=== PATIENT | male | born 1955 | race Caucasian/White ===

== ENCOUNTER → 2019-04-03 09:01 | Outpatient (CLI) | payer MEDICARE ==
[2014-06-10 08:28] VITALS: BMI 25.8
[~2019-04-03 09:01] MED LIST: BAYER CHEWABLE81 MG PO; COREG 3.1253.125 MG PO; IMDUR30 MG PO; LISINOPRIL5 MG PO; MOTRIN PM CAPL1 EACH PO; NEURONTIN 300300 MG PO; PLAVIX75 MG PO
== END | disposition home or self-care (01) ==
LOC: D.HCCARDIO 09:00
PROVIDERS: ATTEND Internal Medicine Cardiovascular Disease
DX: I25.10 Atherosclerotic heart disease of native coronary artery without angina pectoris (principal)

== ENCOUNTER 2019-05-10 07:01 | Outpatient (CLI) | payer MEDICARE ==
[~2019-05-10] VITALS: Ht 177.8 cm; Wt 75.9 kg
--- NOTE | ~2019-05-10 | HEMODYNAMI ---
PATIENT:IVAN MALIK MEDICAL RECORD: [id number] : 57 LOCATION:[facility] ADMISSION DATE: 05/10/19 Generatedon:05/10/20199:52 Patient name: IVAN MALIK Patient #: [id number] SSN: [id number] : 1955 Date of study: 05/10/2019 Page: Of Hemodynamic Procedure Report Patient Data Patient Demographics Procedure consent was obtained First Name: IVAN Gender: Male Last Name: KING : 1955 Patient #: [id number] Age: 63 year(s) Race: SSN: [id number] Additional ID: [id number] Contact details [address]: [address] [place] [address] [facility] [place] [facility] Zip code: [address] Past Medical History Performed procedures and imaging results Date Procedure Procedure Results Comments Stress testing with Positive SPECT MPI History of disease Date Diagnosis Comments CAD Allergies Allergen Reaction Date Comments Reported Other allergy 05/10/2019 NAPROXEN Admission Admission Data Admission Date: 05/10/2019 Admission Time: 7:01 Arrival Date: 05/10/2019 Arrival Time: 0:00 Height (in.): 70 BSA: 1.94 (m2) Height (cm.): 177.8 BMI: 24.04 (kg/m2) Weight (lbs.): 167.55 Weight (kg.): 76 Lab Results Lab Result Date: 05/10/2019 Lab Result Time: 0:00 Biochemistry Name Units Result Min Max BUN mg/dl 10 --(-*--)-- 7 18 Creatinine mg/dl 0.8 --(-*--)-- 0.6 1.3 eGFR ml/min 90 --(*---)-- 90 120 NONAFRICAN CBC Name Units Result Min Max Hematocrit % 45 --(*---)-- 42 54 Hemoglobin g/dl 15.4 --(-*--)-- 13.5 17.5 Procedure Procedure Types Cath Procedure Diagnostic Procedure LHC LHC w/Coronaries Sedation Charges Moderate Sedation up to 45 minutes PCI Procedure Coronary Stent Coronary Stent Initial Procedure Description Procedure Date Procedure Date: 05/10/2019 Procedure Start Time: 8:59 Procedure End Time: 9:50 Procedure Staff Name Function Kimo Prado MD Performing Physician Nicole Stafford RT Monitor Millie Silvestre RT Monitor Sri Singh RT Scrub Cinda Almaraz RN Nurse Procedure Data Cath Procedure Fluoroscopy Diagnostic fluoroscopy Total fluoroscopy Time: 9.3 time: 9.3 min min Diagnostic fluoroscopy Total fluoroscopy dose: dose: 1006 mGy 1006 mGy Contrast Material Contrast Material Type Amount (ml) Isovue 300 131 Entry Location Entry Primary Successful Side Size Upsize Upsize Entry Closure Sibley ccessful Closure Location (Fr) 1 (Fr) 2 (Fr) Remarks Device Remarks Radial Right 6 Fr Mechanical artery Short Compression Estimated blood loss: 10 ml Diagnostic catheters Device Type Used For End Catheter Placement DIAGNOSTIC [place] 110cm 5 Procedure Fr catheter ([id number]) DIAGNOSTIC Praful 110cm Procedure 5Fr catheter ([id number]) DIAGNOSTIC Pigtail 5Fr LV Angiography catheter ([id number]) Procedure Complications No complications Procedure Medications Medication Administration Route Dosage Oxygen etCO2 Nasal cannula 2 l/min Lidocaine 2% added to field 20 Heparin Flush Bag added to field 2 bags (1000units/500ml NS) 0.9% NaCl I.V. 100 ml/hr Zofran I.V. 4 mg Versed I.V. 2 mg Fentanyl I.V. 50 mcg Versed I.V. 2 mg Fentanyl I.V. 50 mcg Versed I.V. 2 mg Versed I.V. 1 mg Heparin Bolus I.V. 7500 units Fentanyl I.V. 50 mcg Versed I.V. 1 mg Nitroglycerin IC/IA I.C. 50 mcg Radial Cocktail I.A. 1 syringe (Verapamil 2mg/Nitro 400mcg/Heparin 1500units) Hemodynamics Rest BSA: 1.94 (m2) HGB: 15.4 (g/dl) O2 Consumption: Estimated: 224.37 (ml/min) O2 Co nsumption indexed: Estimated:115.65 (ml/min/m) Heart Rate: 66 (bpm) Pressure Samples Time Site Value (mmHg) Purpose Heart Use Rate(bpm) 9:18 LV 101/-6,4 Snapshot 80 9:18 AO 113/52(73) Pullback 90 9:18 LV 108/-9,5 Pullback 90 Gradients Valve Time Site 1 Site 2 Mean SEP/DFP Peak To Heart Use (mmHg) (sec/min) Peak Rate (mmHg) (bpm) Aortic 9:18 LV AO 0 7 0 90 108/-9,5 113/52(73) Calculations Valve P-P Mean Valve Index Valve Source Name Gradient Area Flow (cm2) Aortic 0 0 0 0 Snapshots Pre Cath Intra NCS Post Cath Vital Signs Time Heart Resp SPO2 etCO2 NIBP (mmHg) Rhythm Pain Sedation Rate (ipm) (%) (mmHg) Status Level (bpm) 8:45:45 75 19 94 0 135/74(105) NSR 0 (11) 10(A) , No pain 8:49:55 80 10 96 35.4 108/59(78) NSR 0 (11) 10(A) , No pain 8:54:03 79 15 96 35.3 91/54(65) NSR 0 (11) 10(A) , No pain 8:58:09 86 17 97 27.9 92/52(68) NSR 0 (11) 10(A) , No pain 9:02:15 82 15 97 27.1 85/51(62) NSR 0 (11) 10(A) , No pain 9:06:20 86 18 95 17.3 76/43(58) NSR 0 (11) 9(A) , No pain 9:10:22 89 19 100 0 84/48(57) NSR 0 (11) 9(A) , No pain 9:14:28 80 19 100 29.3 95/44(61) NSR 0 (11) 9(A) , No pain 9:18:44 87 23 100 27.8 86/31(38) NSR 0 (11) 10(A) , No pain 9:22:48 80 18 96 35.4 101/51(68) NSR 0 (11) 9(A) , No pain 9:26:55 85 23 94 24.8 92/54(65) NSR 0 (11) 9(A) , No pain 9:31:03 85 14 96 36.1 99/49(65) NSR 0 (11) 9(A) , No pain 9:35:13 88 20 92 27.8 88/50(66) NSR 0 (11) 9(A) , No pain 9:39:17 93 19 95 28.6 92/54(69) NSR 0 (11) 10(A) , No pain 9:43:23 89 18 95 33.9 96/53(72) NSR 0 (11) 10(A) , No pain 9:47:31 86 22 96 32.4 105/52(72) NSR 0 (11) 10(A) , No pain Medications Time Medication Route Dose Verified Delivered Reason Note s Effectiveness by by 8:48:26 Oxygen etCO2 2 l/min Kimo Buffie used for Nasal Johan Almaraz RN procedure cannula 8:48:42 Lidocaine 2% added 20ml Kimo Kimo for local to vial Johan Prado MD anesthetic field 8:48:48 Heparin Flush added 2 bags Kimo Kimo used for Bag to Johan Prado MD procedure (1000units/500ml field NS) 8:48:56 0.9% NaCl I.V. 100 Kimo Buffie Per physician ml/hr Johan Almaraz RN 8:49:14 Zofran I.V. 4 mg Kimo Buffie Per physician Johan Almaraz RN 8:49:25 Radial Cocktail I.A. 1 Kimo Kimo for (Verapamil syringe Johan Prado MD vasodilation 2mg/Nitro 400mcg/Heparin 1500units) 8:50:28 Versed I.V. 2 mg Kimo Buffie for sedation Johan Almaraz RN 8:50:34 Fentanyl I.V. 50 mcg Kimo Buffie for sedation Johan Almaraz RN 8:56:38 Versed I.V. 2 mg Kimo Buffie for sedation Johan Almaraz RN 8:56:40 Fentanyl I.V. 50 mcg Kimo Buffie for sedation Johan Almaraz RN 9:05:55 Versed I.V. 2 mg Kimo Buffie for sedation Johan Almaraz RN 9:20:34 Versed I.V. 1 mg Kimo Buffie for sedation Johan Almaraz RN 9:22:31 Heparin Bolus I.V. 7500 Kimo Buffie for veri fied units Johan Almaraz RN anticoagulation with dr prado 9:26:34 Fentanyl I.V. 50 mcg Kimo Buffie for sedation Johan Almaraz RN 9:28:43 Versed I.V. 1 mg Kimo Loo for sedation Johan Almaraz RN 9:34:31 Nitroglycerin I.C. 50 mcg Kimo Malin for IC/IA Johan Prado MD vasodilation Procedure Log Time Note 8:06:34 Informed consent obtained and on chart 8:07:23 Procedure Status Elective Heart Cath (OP). 8:07:24 Time tracking: Regular hours (M-F 7:00 - 5:00) 8:07:30 Plan of Care:Hemodynamics will remain stable., Cardiac rhythm will remain stable., Comfort level will be maintained., Respiratory function will remain adequate., Patient/ family verbilizes understanding of procedure., Procedure tolerated without complication., Recovers from procedure without complications.. 8:08:07 H&P Date Dictated: 05/10/2019 Within 30 days and on chart., H&P Addendum completed by physician on day of procedure. (MUST COMPLETE FOR ALL OUTPATIENTS). 8:08:20 Patient allergic to Other allergyNAPROXEN 8:09:04 Patient Weight : 167.55 lbs 8:09:13 Patient Height : 70 inches 8:09:17 Arrival Date: 05/10/2019 12:00:00 AM 8:10:10 Cinda Almaraz RN sent for patient. Start room use. 8:19:45 Lab Result : Creatinine 0.8 mg/dl 8:19:45 Lab Result : BUN 10 mg/dl 8:19:45 Lab Result : eGFR NONAFRICAN 90 ml/min 8:19:45 Lab Result : Hemoglobin 15.4 g/dl 8:19:45 Lab Result : Hematocrit 45 % 8:27:59 Lab results completed and on chart. 8:28:09 Risk of Mortality: 0.1 8:28:15 Risk of blood transfusion: 0.9 8:28:19 Risk of LESLIE: 0.3 8:38:23 Patient received from Pre/Post Procedure Room to CCL 1 Alert and oriented. Tansferred to table in Supine position. 8:44:35 Warm blankets applied, and samantha hugger turned on for patient comfort. 8:44:36 Correct patient and procedure confirmed by team. 8:44:37 ECG and BP/O2 sat monitors applied to patient. 8:44:38 Vital chart was started 8:44:39 Baseline sample Acquired. 8:44:47 Rhythm: sinus rhythm 8:44:49 Full Disclosure recording started 8:44:50 8:44:51 Pre-procedure instructions explained to patient. 8:44:52 Pre-op teaching completed and patient verbalized understanding. 8:44:55 Family in patients room. 8:44:58 Patient NPO since Midnight. 8:45:01 Is the patient allergic to Iodine/contrast media? Yes. 8:45:05 Was the patient premedicated? Yes 8:45:07 Is patient on blood thinner?Yes 8:45:13 ACC The patient was administered the following blood thiners within the last 24 hours: ACCPlavix 8:45:16 Patient diabetic? No. 8:45:28 ----Pre-sedation anethsthesia assessment.---- 8:45:32 Previous problem with sedation/anesthesia? No ? 8:45:34 Snore? Yes 8:45:36 Sleep apnea? No 8:45:38 Deviated septum? No 8:45:40 Opens mouth fully? Yes 8:45:42 Sticks out tongue? Yes 8:45:46 Airway obstruction? Yes ,COPD? 8:46:11 Dentures? No ? 8:46:44 Pre procedure: right dorsailis pedis pulse 2+ Normal; easily identifiable; not easily obliterated 8:46:50 Modified Brian's test Ulnar < 7 seconds 8:46:55 Patient pain scale 0/10 ?. 8:47:06 IV patent on arrival in left hand with 0.9% NaCl at [facility]. 8:47:19 Right groin area was prepped with chlora-prep and draped in sterile fashion 8:47:21 Alarms reviewed by Minal Washburn 8:47:22 Sharps counted by scrub and verified by Ulises 8:47:23 --------ALL STOP TIME OUT------ 8:47:24 Final Timeout: patient, procedure, and site verified with staff and physician. All members of the team are in agreement. 8:47:27 Right groin site verified by team. 8:47:32 Fire Safety Assessment: A--An alcohol-based skin anteseptic being used preoperatively., C--Open oxygen or nitrous oxide is being used., D--An ESU, laser, or fiber-optic light is being used. 8:47:38 Physical assessment completed. ASA score P 2 - A patient with mild systemic disease as per Kimo Prado MD. 8:47:44 1) 90+ Normal kidney functon but urine findings or structural abnormalities or genetic trait point to kidney disease. 8:47:50 Maximum allowable contrast dose (3.7 X eGFR X 0.75)250 ml. 8:48:00 Sedation plan: IV Moderate Sedation Medication:Versed, Fentanyl 8:48:08 Use device set Radial Dx or PCI 8:48:10 ACIST Syringe (72859) opened to sterile field. 8:48:11 Medline Cath Pack ([id number]) opened to sterile field. 8:48:11 Bag Decanter (2002S) opened to sterile field. 8:48:12 ACIST Hand Control (04639) opened to sterile field. 8:48:13 ACIST Manifold (14723) opened to sterile field. 8:48:14 Tegaderm 4 x 4 (1626W) opened to sterile field. 8:48:15 MBrace Wrist Support ([id number]) opened to sterile field. 8:48:17 NEEDLE Cook 21G 4cm Radial (W14043) opened to sterile field. 8:48:18 EMERALD Guide Wire (878-205) opened to sterile field. 8:48:19 SHEATH 6FR RAIN (1767712) opened to sterile field. 8:48:26 Oxygen 2 l/min etCO2 Nasal cannula was administered by Cinda Almaraz RN; used for procedure; Verbal order read back and verified. 8:48:42 Lidocaine 2% 20ml vial added to field was administered by Kimo Prado MD; for local anesthetic; Verbal order read back and verified. 8:48:48 Heparin Flush Bag (1000units/500ml NS) 2 bags added to field was administered by Kimo Prado MD; used for procedure; Verbal order read back and verified. 8:48:56 0.9% NaCl 100 ml/hr I.V. was administered by Cinda Almaraz RN; Per physician; Verbal order read back and verified. 8:49:14 Zofran 4 mg I.V. was administered by Cinda Almaraz RN; Per physician; Verbal order read back and verified. 8:49:25 Radial Cocktail (Verapamil 2mg/Nitro 400mcg/Heparin 1500units) 1 syringe I.A. was administered by Kimo Prado MD; for vasodilation; Verbal order read back and verified. 8:50:28 Versed 2 mg I.V. was administered by Cinda Almaraz RN; for sedation; Verbal order read back and verified. 8:50:34 Fentanyl 50 mcg I.V. was administered by Cinda Almaraz RN; for sedation; Verbal order read back and verified. 8:55:51 Zero performed for pressure channel P1 8:56:38 Versed 2 mg I.V. was administered by Cinda Almaraz RN; for sedation; Verbal order read back and verified. 8:56:40 Fentanyl 50 mcg I.V. was administered by Cinda Almaraz RN; for sedation; Verbal order read back and verified. 8:58:57 Procedure started. 8:59:54 Local anesthetic to right radial artery with Lidocaine 2% by Kimo Prado MD.INITIAL ACCESS ONLY 9:01:09 A 6 Fr Short sheath was inserted into the Right Radial artery 9:01:23 Zero performed for pressure channel P1 9:02:12 A DIAGNOSTIC [place] 110cm 5 Fr catheter (830375) was advanced over the wire and used for Procedure. 9:04:24 RCA angiography performed. 9:04:47 Injector settings: Ml/sec: 3, Volume: 5, 9:04:56 LCA angiography performed. 9:05:29 Injector settings: Ml/sec: 3, Volume: 6, 9:05:55 Versed 2 mg I.V. was administered by Cinda Almaraz RN; for sedation; Verbal order read back and verified. 9:06:29 Catheter exchanged over wire. 9:07:49 A DIAGNOSTIC Pra[place] 110cm 5Fr catheter (501504) was advanced over the wire and used for Procedure. 9:08:42 LCA angiography performed. 9:08:51 Injector settings: Ml/sec: 3, Volume: 6, 9:14:13 ACCDominant side:Left 9:16:05 Proceeding to intervention. 9:16:16 INFLATOR Merit Yousifpak (NF3113) opened to sterile field. 9:16:38 BMW 300cm Straight Speculator 2 wire (2299442) opened to sterile field. 9:16:47 TUBING High Pressure Extension Tubing (Johan) ([id number]) opened to sterile field. 9:17:16 GUIDE 6FR XBLAD 3.5 catheter (42973307) opened to sterile field. 9:17:51 A DIAGNOSTIC Pigtail 5Fr catheter (637554Q) was advanced over the wire and used for LV Angiography. 9:18:10 LV gram done using RODRÍGUEZ 9:18:12 LV hemodynamics recorded. 9:18:18 Injector settings: Ml/sec: 10, Volume: 20, 9:18:27 EF : 50 % 9:18:32 Catheter exchanged over wire. 9:19:09 6 Fr XBLAD3.5 guide catheter was inserted over the wire 9:20:34 Versed 1 mg I.V. was administered by Cinda Almaraz RN; for sedation; Verbal order read back and verified. 9:21:23 BMW 300 wire advanced. 9:22:31 Heparin Bolus 7500 units I.V. was administered by Cinda Almaraz RN; for anticoagulation; verified with dr prado Verbal order read back and verified. 9:26:34 Fentanyl 50 mcg I.V. was administered by Cinda Almaraz RN; for sedation; Verbal order read back and verified. 9:27:36 Pre PCI Site: [place] pLAD has 80% stenosis. 9:27:47 Wire advanced across lesion. 9:28:43 Versed 1 mg I.V. was administered by Cinda Almaraz RN; for sedation; Verbal order read back and verified. 9:29:33 Inflate balloon Inflation number: 1 A EMERGE OTW 2.5 x 15 balloon ([id number]) was prepped and advanced across the Prox LAD , then inflated to 14 STEVO for 0:10 (min:sec) . 9:31:27 Inflation number: 2 The EMERGE OTW 2.5 x 15 balloon ([id number]) was reinflated across the Prox LAD , to 16 STEVO for 0:10 (min:sec) . 9:32:30 Balloon removed over the wire. 9:34:31 Nitroglycerin IC/IA 50 mcg I.C. was administered by Kimo Prado MD; for vasodilation; Verbal order read back and verified. 9:41:17 Place stent Inflation Number: 3 A AAYUSH OTW 2.5 x 12 stent ([id number]) was prepped and advanced across the Prox LAD . The stent was deployed at 15 STEVO for 0:10 (min:sec) . 9:41:32 Stent catheter was removed intact over wire. 9:42:12 Guide catheter removed. 9:42:14 Wire removed. 9:42:30 ACT drawn and resulted at ABOVE 400 seconds. (normal therapeutic range 180-240 seconds). 9:43:02 ZEPHYR REGULAR TR BAND (452881) opened to sterile field. 9:43:11 Procedure ended.(Physican Out) 9:43:23 Sheath removed intact; hemostasis achieved with Mechanical Compression to the Right Radial artery. 9:43:52 Fluoroscopy time 09.30 minutes. 9:44:01 Contrast amount:Isovue 300 131ml. 9:44:13 Fluoroscopy dose: 1006 mGy 9:44:13 Flurop Dose total: 1006 9:44:23 Dose Area Product 60682 mGy/cm. 9:44:30 Maximum allowable dose exceeded? No. 9:44:31 Sharps counted by scrub and verified by R.N. 9:44:43 [place] band inflated with 8cc of air. 9:44:45 Insertion/operative site no bleeding no hematoma. 9:44:53 Post right radial artery:stable 9:44:56 Post Procedure Pulses reassessed and unchanged 9:45:02 Post-procedure physical assessment completed. ASA score P 2 - A patient with mild systemic disease as per Kimo Prado MD. 9:45:09 Post procedure rhythm: unchanged. 9:45:24 Estimated blood loss: 10 ml 9:45:27 Post procedure instruction explained to patient.Patient verbalizes understanding. 9:45:28 Patient needs reinforcement of post procedure teaching. 9:47:28 Procedure type changed to Cath procedure, Diagnostic procedure, LHC, LHC w/Coronaries, Sedation Charges, Moderate Sedation up to 45 minutes, PCI procedure, Coronary Stent, Coronary Stent Initial 9:47:37 Procedure and supply charges have been captured, reviewed, submitted and are correct. 9:49:44 Procedure Complication : No complications 9:49:49 Vital chart was stopped 9:49:54 [facility] Findings: MVD- PCI performed (see procedure note) 9:49:56 Operative report dictated upon procedure completion. 9:49:57 See physician's report for complete and final results. 9:50:01 Report given to Pre/Post Procedure Room. 9:50:06 Patient transfered to Pre/Post Procedure Room with Stretcher. 9:50:09 Procedure ended. 9:50:09 Full Disclosure recording stopped 9:50:18 ACC-PCI Only Patient was given prescriptions, or instructed by Kimo Prado MD to start/continue the following medications upon discharge: Plavix 9:50:20 End room use (Document Last) Intervention Summary Intervention Notes Time ActionType Lesion and Equipment Action# Pressure Duration Attributes Used 9:29:33 Inflate Prox LAD EMERGE OTW 1 14 00:10 balloon 2.5 x 15 balloon ([id number]) 9:31:27 Reinflate Prox LAD EMERGE OTW 2 16 00:10 balloon 2.5 x 15 balloon ([id number]) 9:41:17 Place stent Prox LAD AAYUSH OTW 2.5 3 15 00:10 x 12 stent ([id number]) Device Usage Item Name Manufacture Quantity Catalog Number Hospital Part Current M inimal Lot# / Charge Number Stock Stock Serial# Code ACIST Syringe Acist 1 [id number] 545534 184374 200826 2 0 (02055) Medical Systems Inc Medline Cath Medline 1 [id number] 180286 46370 739356 5 Pack ([id number]) Bag Decanter Microtek 1 2001S 208944 61186 916616 5 (2001S) Medical Inc. ACIST Hand Acist 1 17914 888899 251659 064551 5 Control Medical (71001) Systems Inc ACIST Acist 1 45406 360854 259261 535591 5 Manifold Medical (93580) Systems Inc Tegaderm 4 x 3M 1 1626W 230215 725492 550628 5 4 (1626W) MBrace Wrist Advanced 1 140-0250-00 546169 32905 950884 5 Support Vascular (942388309) Dynamics NEEDLE LetsWombat Medical 1 A71191 026070 181263 375353 5 21G 4cm Radial (N85239) EMERALD Guide Cardinal 1 502-455 004329 378334 530006 5 Wire Health (502-455) SHEATH 6FR Cardinal 1 5417992 329594 5661121 983664 5 RAIN Health (6716045) DIAGNOSTIC Terumo 1 40-5013 607762 596183 169691 5 [place] 110cm 5 Fr catheter (096365) DIAGNOSTIC Terumo 1 40-5023 342262 445486 484907 5 Praful 110cm 5Fr catheter (249455) INFLATOR Merit 1 QP5982 397509 697934 355430 1 5 Merit Medical BasixCompak (EV7814) BMW 300cm Corcoran 1 3659511 376213 910105 445202 5 Straight Vascular Speculator 2 wire (0091139) TUBING High Merit 1 [id number] 032555 07269 287117 1 0 Pressure Medical Extension Tubing (Prado) (UB5665E) GUIDE 6FR Cardinal 1 [id number] 187510 760715 268980 1 0 XBLAD 3.5 Health catheter (48289081) DIAGNOSTIC Cardinal 1 [id number] 449531 552405 438896 5 Pigtail 5Fr Health catheter (090689A) EMERGE OTW [place] 1 [id number] 694035 002208 421921 5 [id number] 2.5 x 15 Scientific balloon ([id number]) AAYUSH OTW 2.5 Medtronic 1 [id number] 665700 75424 917056 5 [id number] x 12 stent ([id number]) ZEPHYR Cardinal 1 400061 490447 0188110 758951 5 REGULAR TR Health BAND (628271) Signature Audit Ruby Stage Time Signature Unsigned Intra-Procedure 05/10/2019 Millie 9:51:17 AM Nirmala RT(R) (CV) Intra-Procedure 05/10/2019 Cinda Almaraz RN 9:51:45 AM Intra-Procedure 05/10/2019 Kimo Prado MD 9:52:30 AM [facility] [address] [place] [address]
[2019-05-10] MEDS ORDERED: LISINOPRIL-HCT1 EAC8 PO (07:27)
[2019-05-10] MEDS ORDERED: HYDROCODON-ACE1 EA10 PO (07:28)
[2019-05-10] MEDS ORDERED: ZOCOR20 MG PO (07:28)
[2019-05-10] MEDS ORDERED: FLOMAX0.4 MG PO (07:28)
[2019-05-10 07:35] VITALS: BP 129/63; Ht 177.8 cm; Wt 75.9 kg
[2019-05-10 07:58] LABS: ALT (SGPT) 18 U/L (10-68); CALC OSMOLALITY 278 mosm/kg (275-300); CALCIUM 9.1 mg/dL (8.5-10.1); CARBON DIOXIDE 28.8 mmol/L (21.0-32.0); CHLORIDE - SERUM 101 mmol/L (98-107); CHOLESTEROL, TOTAL 160 mg/dL (0-200); CREATININE - SERUM 0.8 mg/dL (0.6-1.3); GLUCOSE 168 mg/dL (74-106); HDL CHOLESTEROL 40 mg/dL (32-96); LDL CHOLESTEROL 99 mg/dL (0-100); LDL-HDL RATIO 2.5 ratio (1.5-3.5); POTASSIUM - SERUM 3.7 mmol/L (3.5-5.1); SODIUM 138 mmol/L (136-145); TRIGLYCERIDE 105 mg/dL (30-200); UREA NITROGEN 10 mg/dL (7-18); eGFR NON AFRICAN AMERICAN > 90 mL/min (90-120)
[2019-05-10 08:14] LABS: BASOPHILS 0.4 % (0-2); EOSINOPHILS 1.9 % (0-7); HEMOGLOBIN 15.4 g/dL (13.5-17.5); IMMATURE GRANULOCYTES 0.2 % (0-5); LYMPHOCYTES 17.9 % (15-50); MCHC 34.2 g/dL (31.0-37.0); MCV 87.5 fL (80.0-100.0); MEAN PLATELET VOLUME 9.5 fL (7.4-10.4); MONOCYTES 9.6 % (2-11); PLATELET COUNT 209 10x3/uL (130-400); RBC 5.14 10x6/uL (4.20-6.10); RDW 12.6 % (11.5-14.5); WBC 10.4 10x3/uL (4.8-10.8)
--- NOTE | 2019-05-10 09:56 | NUR ---
PT ARRIVED BY STRETCHER. PLACED ON MONITOR. ASSESSMENT COMPLETED. FAMILY AT BEDSIDE. CALL LIGHT WITHIN REACH.
--- NOTE | 2019-05-10 10:15 | NUR ---
PT RESTING COMFORTABLY. VSS. RIGHT RADIAL BAND IN PLACE. NO BLEEDING/HEMATOMA NOTED. CALL LIGHT WITHIN REACH. FAMILY AT BEDSIDE. CAP REFILL TO RIGHT HAND < 3 SECS.
--- NOTE | 2019-05-10 10:28 | NUR ---
DR. DOWD ROUNED AND SPOKE WITH PT AND PT'S .
--- NOTE | 2019-05-10 11:00 | NUR ---
RIGHT WRIST BAND IN PLACE. NO BLEEDING/HEMATOMA NOTED. CALL LIGHT WITHIN REACH. PT TOLERATING COFFEE. DENIES NAUSEA. NO NEEDS AT THIS TIME.
--- NOTE | 2019-05-10 11:30 | NUR ---
PT RESTING COMFORTABLY. WITH EYES CLOSED. VSS. EASILY AROUSED FROM SLEEP. RIGHT WRIST BAND IN PLACE. NO BLEEDING/HEMATOMA NOTED.
--- NOTE | 2019-05-10 12:15 | NUR ---
SMALL SWELLING NOTED BEHIND Z BAND. PRESSURE HELD AND BRUISE SOFTENED. PT TOLERATED WELL. WILL WAIT TO START WEANING AND MONITOR FOR NEW SWELLING. VSS. FAMILY AT BEDSIDE. PT VOIDED IN URINAL WITHOUT DIFFICULTY.
--- NOTE | 2019-05-10 12:45 | NUR ---
NO NEW SWELLING NOTED. 2cc OF AIR REMOVED FROM Z BAND. TOLERATED WELL. NO NEW BLEEDING NOTED.
--- NOTE | 2019-05-10 13:00 | NUR ---
2cc OF AIR REMOVED FROM Z BAND. NO NEW SWELLING NOTED. NO NEW BLEEDING NOTED, BUT WILFREDO AT BEDSIDE TO MASSAGE THE OLD HEMATOMA TO MAKE SURE THAT IT SOFTENS.
--- NOTE | 2019-05-10 13:30 | NUR ---
4cc OF AIR REMOVED FROM Z BAND. TOLERATED WELL. VSS. BRUISING NOTED TO RIGHT WRIST, BUT NO NEW HEMATOMA. NO BLEEDING NOTED. FAMILY AT BEDSIDE. DISCUSSED DISCHARGE INSTRUCTIONS WITH PT AND PT'S FAMILY. THEY VOICED UNDERSTANDING.
--- NOTE | 2019-05-10 13:35 | NUR ---
RIGHT WRIST BAND REMOVED AND DRESSING APPLIED. NO NEW BLEEDING NOTED. RIGHT WRIST BRACE IN PLACE. PIV D/C'D WITH CATH TIP INTACT. TOLERATED WELL. PT INSTRUCTED TO GET UP AND DRESSED. FAMILY AT BEDSIDE TO ASSIST.
--- NOTE | 2019-05-10 13:55 | NUR ---
PT TAKEN OUT TO VEHICLE BY WHEELCHAIR. NO S/S OF DISTRESS NOTED. ALL BELONGINGS AND PAPERWORK IN HAND.
== END 2019-05-10 13:55 | disposition home or self-care (01) ==
LOC: D.CATH 07:01
PROVIDERS: ATTEND Internal Medicine Cardiovascular Disease
DX: I25.119 Atherosclerotic heart disease of native coronary artery with unspecified angina pectoris (principal); R94.30 Abnormal result of cardiovascular function study, unspecified

== ENCOUNTER → 2020-03-25 17:35 | Outpatient (CLI) | payer MEDICARE ==
[2019-05-10 07:35] VITALS: BMI 24.0
[~2020-03-25 17:35] MED LIST changes: +FLOMAX0.4 MG PO; +HYDROCODON-ACE1 EA10 PO; +LISINOPRIL-HCT1 EAC8 PO; +ZOCOR20 MG PO
[2020-03-25 18:12] LABS: CHOL - HDL RATIO 4.1 ratio (2.3-4.9); LDL-HDL RATIO 1.8 ratio (1.5-3.5)
== END | disposition home or self-care (01) ==
LOC: D.LABREF 17:35
PROVIDERS: ATTEND Internal Medicine Cardiovascular Disease
DX: I25.10 Atherosclerotic heart disease of native coronary artery without angina pectoris (principal)